=== PATIENT | male | born 1990 | race Caucasian/White ===

== ENCOUNTER 2021-01-24 15:20 | Emergency (ER) | payer OTHER ==
[~2021-01-24] VITALS: Ht 182.9 cm; Wt 115.7 kg
[~2021-01-24 15:20] MED LIST: Librium25 MG PO
[2021-01-24 16:14] LABS: BASOPHILS ABSOLUTE AUTO 0.07 K/mm3 (0.00-0.23); BASOPHILS PERCENT AUTO 1 % (0-2); EOSINOPHILS ABSOLUTE AUTO 0.06 K/mm3 (0.00-0.68); EOSINOPHILS PERCENT AUTO 1 % (0-6); Hematocrit 47.4 % (37.0-53.0); Hemoglobin 16.8 g/dL (13.5-17.5); IMMATURE GRAN ABSOLUTE AUTO 0.05 K/mm3 (0.00-0.10); IMMATURE GRAN PERCENT AUTO 0 % (0-1); LYMPHOCYTES ABSOLUTE AUTO 1.46 K/mm3 (0.84-5.20); LYMPHOCYTES PERCENT AUTO 12 % (21-46); MONOCYTES ABSOLUTE AUTO 0.92 K/mm3 (0.16-1.47); MONOCYTES PERCENT AUTO 7 % (4-13); Mean Corpuscular HGB 32.7 pg (26.0-34.0); Mean Corpuscular HGB Conc 35.4 g/dL (31.5-36.5); Mean Corpuscular Volume 92 fL (80-100); Mean Platelet Volume 10.7 fL (9.1-12.4); NEUTROPHILS ABSOLUTE AUTO 9.94 K/mm3 (1.96-9.15); NEUTROPHILS PERCENT AUTO 79 % (41-73); Platelet Count 290 K/mm3 (150-400); RDW Coefficient Variation 12.4 % (11.7-14.2); RDW Standard Deviation 42.4 fL (35.1-46.3); Red Blood Cell Count 5.14 M/mm3 (4.30-5.90)
[2021-01-24 16:29] LABS: Alanine Aminotransfer (ALT/SGP 64 U/L (12-78); Albumin, Blood 4.2 g/dL (3.4-5.0); Albumin/Globulin Ratio 1.2 (0.8-1.8); Alk Phos 96 U/L (50-136); Anion Gap 13 mmol/L (6-16); Aspartate Aminotrans (AST/SGOT 93 U/L (12-37); Bilirubin, Total 1.2 mg/dL (0.1-1.0); Blood Urea Nitrogen 8 mg/dL (8-24); Bun/Creatinine Ratio 6.3 (12.0-20.0); CO2, Blood 22 mmol/L (21-32); Calcium, Blood 9.5 mg/dL (8.5-10.1); Chloride, Blood 104 mmol/L (98-108); Creatinine, Blood 1.27 mg/dL (0.60-1.20); Ethanol (Alcohol), Blood, Med 45 mg/dL; Globulin, Blood 3.6 g/dL (2.2-4.0); Glomerular Filtration Rate >60 (60-); Glucose, Blood 98 mg/dL (70-99); Magnesium, Blood 1.6 mg/dL (1.6-2.4); Sodium, Blood 139 mmol/L (136-145); Total Protein, Blood 7.8 g/dL (6.4-8.2)
== END 2021-01-24 17:46 | disposition home or self-care (01) ==
LOC: ER 15:20
PROVIDERS: Emergency Medicine
DX: R10.9 Unspecified abdominal pain (principal); F10.20 Alcohol dependence, uncomplicated
CPT/HCPCS: 80053; 83690; 83735; 84145; 85025; 96374; 99285-25; A9270; G0480

== ENCOUNTER 2022-12-01 09:08 | Inpatient (IN) | payer OTHER ==
[~2022-12-01] VITALS: Ht 180.3 cm; Wt 108.9 kg
[2022-12-01 09:36] LABS: BASOPHILS ABSOLUTE AUTO 0.05 K/mm3 (0.00-0.23); BASOPHILS PERCENT AUTO 1 % (0-2); EOSINOPHILS PERCENT AUTO 3 % (0-6); Hematocrit 46.4 % (37.0-53.0); Hemoglobin 16.4 g/dL (13.5-17.5); IMMATURE GRAN ABSOLUTE AUTO 0.01 K/mm3 (0.00-0.10); IMMATURE GRAN PERCENT AUTO 0 % (0-1); LYMPHOCYTES ABSOLUTE AUTO 1.53 K/mm3 (0.84-5.20); LYMPHOCYTES PERCENT AUTO 26 % (21-46); MONOCYTES ABSOLUTE AUTO 0.54 K/mm3 (0.16-1.47); MONOCYTES PERCENT AUTO 9 % (4-13); Mean Corpuscular HGB 32.9 pg (26.0-34.0); Mean Corpuscular HGB Conc 35.3 g/dL (31.5-36.5); Mean Corpuscular Volume 93 fL (80-100); Mean Platelet Volume 10.7 fL (9.1-12.4); NEUTROPHILS ABSOLUTE AUTO 3.57 K/mm3 (1.96-9.15); NEUTROPHILS PERCENT AUTO 61 % (41-73); Platelet Count 244 K/mm3 (150-400); RDW Coefficient Variation 12.3 % (11.7-14.2); RDW Standard Deviation 42.8 fL (35.1-46.3); Red Blood Cell Count 4.98 M/mm3 (4.30-5.90)
[2022-12-01 09:58] LABS: Alanine Aminotransfer (ALT/SGP 31 U/L (12-78); Albumin, Blood 4.7 g/dL (3.4-5.0); Albumin/Globulin Ratio 1.3 (0.8-1.8); Alk Phos 75 U/L (50-136); Anion Gap 7 mmol/L (6-16); Aspartate Aminotrans (AST/SGOT 25 U/L (12-37); Bilirubin, Total 1.1 mg/dL (0.1-1.0); Blood Urea Nitrogen 9 mg/dL (8-24); Bun/Creatinine Ratio 8.2 (12.0-20.0); CO2, Blood 26 mmol/L (21-32); Calcium, Blood 9.6 mg/dL (8.5-10.1); Chloride, Blood 105 mmol/L (98-108); Ethanol (Alcohol), Blood, Med <3 mg/dL; Globulin, Blood 3.6 g/dL (2.2-4.0); Glomerular Filtration Rate 91 (60-); Glucose, Blood 93 mg/dL (70-99); Magnesium, Blood 1.9 mg/dL (1.6-2.4); Potassium, Blood 3.8 mmol/L (3.5-5.5); Sodium, Blood 138 mmol/L (136-145); Total Protein, Blood 8.3 g/dL (6.4-8.2)
--- NOTE | 2022-12-01 18:22 | NUR ---
ARRIVAL TO PCU/SHIFT SUMMARY Patient arrived to PCU from ED via gurney and transfered to PCU bed indepdently walking. Patient is alert and oriented x4. CIWA 14-19 during this RN shift. Vital signs stable. SPo2>90% on room air. Tele sinus 90s. Patient reports no chest pain/pressure. patient reports no shortness of breath. see shift assessment and alcohol withdrawal assessment for further detials. Patient is able to make his needs known and uses call light appropriately. Plan of care is up to date. call light within reach and bed in lowest position.
--- NOTE | 2022-12-01 23:39 | NUR ---
PT TRANSER ASSUMED CARE OF PT AT 1900. PT IS A/OX4 BUT FORGETFUL. PT CIWAH WAS 36 ON ASSESSMENT AND PT FELT GENERAL MALAISE. PT REPORTED HALLUCINATING AND SEEING HIS CHILDREN IN THE ROOM. PT WAS BEING MEDICATED EVERY HOUR WITH LITTLE RESULTS TO [facility]. DISCUSSED CARE WITH CHARGE NURSE AND HOSPITALIST NOTIFIED AND PT TRANSFERED TO ICU. REPORT GIVEN IN ROOM TO [place] [facility]. PT TOLERATED MOVE WELL AND CALLED IN ROOM.
--- NOTE | 2022-12-02 00:22 | NUR ---
PT ARRIVES TO ROOM ICU 12 FROM PCU. PT'S CIWA INCREASING TO POINT WHERE PRECEDEX IS IN NEED. PT ABLE TO PIVOT TRANSFER TO BED FROM PCU BED. PT ALERT AND HAS SOME DELAY IN REPLIES. SOME GARBLED THOUGHTS WITH CONVERSATION. PT TO ROOM AT 2310. HAVE BEGUN PRECEDEX AT 0.3 MCG'S/KG/HOUR. SUBSEQUENTLY INCREASED TO 0.4 MCG'S/KG/HOUR. WILL REVIEW CHART AND PLAN OF CARE FOR THIS PT.
--- NOTE | 2022-12-02 03:08 | NUR ---
PT CONTINUES ON PRECEDEX DRIP AT 0.4 MCG'S/KG/HOUR. HAVE MEDICATED PT WITH 2 MG ATIVAN FOR INCREASING AGITATION AND ANXIOUSNESS. PT CURRENTLY SLEEPING. WILL CONTINUE TO MONITOR.
[2022-12-02 03:57] LABS: BASOPHILS ABSOLUTE AUTO 0.03 K/mm3 (0.00-0.23); BASOPHILS PERCENT AUTO 1 % (0-2); EOSINOPHILS ABSOLUTE AUTO 0.19 K/mm3 (0.00-0.68); EOSINOPHILS PERCENT AUTO 5 % (0-6); Hematocrit 38.8 % (37.0-53.0); Hemoglobin 13.3 g/dL (13.5-17.5); IMMATURE GRAN ABSOLUTE AUTO 0.01 K/mm3 (0.00-0.10); IMMATURE GRAN PERCENT AUTO 0 % (0-1); LYMPHOCYTES ABSOLUTE AUTO 1.45 K/mm3 (0.84-5.20); LYMPHOCYTES PERCENT AUTO 36 % (21-46); MONOCYTES ABSOLUTE AUTO 0.38 K/mm3 (0.16-1.47); MONOCYTES PERCENT AUTO 10 % (4-13); Mean Corpuscular HGB 32.6 pg (26.0-34.0); Mean Corpuscular HGB Conc 34.3 g/dL (31.5-36.5); Mean Corpuscular Volume 95 fL (80-100); Mean Platelet Volume 10.5 fL (9.1-12.4); NEUTROPHILS ABSOLUTE AUTO 1.96 K/mm3 (1.96-9.15); NEUTROPHILS PERCENT AUTO 49 % (41-73); Platelet Count 183 K/mm3 (150-400); RDW Coefficient Variation 12.2 % (11.7-14.2); RDW Standard Deviation 43.1 fL (35.1-46.3); Red Blood Cell Count 4.08 M/mm3 (4.30-5.90); White Blood Cell Count 4.02 K/mm3 (4.00-11.30)
[2022-12-02 04:52] LABS: Albumin, Blood 3.3 g/dL (3.4-5.0); Albumin/Globulin Ratio 1.2 (0.8-1.8); Bilirubin, Total 1.3 mg/dL (0.1-1.0); Calcium, Blood 8.2 mg/dL (8.5-10.1); Globulin, Blood 2.8 g/dL (2.2-4.0); Potassium, Blood 3.6 mmol/L (3.5-5.5)
[2022-12-02 05:00] LABS: Total Protein, Blood 6.1 g/dL (6.4-8.2)
--- NOTE | 2022-12-02 09:40 | NUR ---
ASSUMED CARE BEDSIDE REPORT FROM JACQUELINE LONG AT 0700. PT c SNORING RESP. TITRATED PRECEDEX OFF. PT WOKE AT 0915. A&OX 4. FOLLOWING DIRECTIONS. COOPERATIVE c CARE. STATES "I FEEL LIKE A TRUCK HIT ME." CIWA 3, C/O MILD NAUSEA. DENIES NEEDS. DR AMAYA ROUNDED. PLAN TO CHANGE STATUS IF PT REMAINS STABLE. PIV X 2. IVF COMPLETE. SR, RATE 60'S. BP STABLE. WILL CONTINUE TO MONITOR.
--- NOTE | 2022-12-02 17:22 | NUR ---
SHIFT SUMMARY/BEHAVIOR/MAD CONSULT PT REMAINED PLEASANT AND COOPERATIVE c CARE UNTIL p LUNCH. PT HAD SUDDEN ONSET OF LUQ PAIN, STATED PAIN WAS 10/10, RESTLESS AND AGITATED IN BED. OBTAINED ORDERS FOR MORPHINE, PT STATES THAT DILAUDID IS THE ONLY PAIN MED THAT WORKS FOR HIM, OBTAINED ORDERS FOR DILAUDID. ADMINSTERED. PT NO LONGER AGITATED OR RESTLESS, REQUESTING ADDITIONAL MEDS, STATES PAIN 7/10, REQUESTING TO SEE MD. DR AMAYA CALLED TO BEDSIDE. ORDERS FOR DILAUDID, CARAFATE AND PROTONIX OBTAINED AND ADMINISTERED, CT ORDERED, COMPLETED. PT CALLED TO REQUESTING TO KNOW PLAN. EDUCATED PT ON ETOH WITHDRAWAL, CIWA, MEDICATION ORDERS, AND WAITING FOR CT RESULTS. PT BECAME AGITATED, SPEAKING OVER MYSELF, ANSWERING OWN QUESTIONS. ATTEMPTED TO REDIRECT PT UNSUCCESSFULLY. PT CONTINUED TO USE CALL SYSTEM REQUESTING ATIVAN, CIWA SCORES 6. MEDICATED c LIBRIUM PO PER ORDER SET. PT REQUESTING ATIVAN, EDUCATED PT THAT PER CIWA, LIBRIUM IS ORDERED. PT STATES "IM NOT TAKING ANYMORE DAMN LIBRIUM." CONTINUES TO BE VERBALLY AGRESSIVE c MYSELF AND OTHER STAFF. SINGLE PASS SOIL STABILIZER OPERATOR NOTIFIED AND PLACED PT ON BEHAVIOR PLAN.
--- NOTE | 2022-12-02 18:25 | NUR ---
PROVIDER UPDATE: Dr Jones called and informed that pt states "I am discharging now". Provider states that pt will need to leave AMA. Second RN preparing paperwork now.
--- NOTE | 2022-12-02 18:43 | NUR ---
Patient called, stating he was in withdrawal and he needed medication. Discussed with patient that he was recently medicated with librium. Patient stated that it's not working. Discussed that it's an oral medication and he recenetly received it so it may take some time for this medication to work. Pt stating he would like to see his doctor. Notified Dr Jones of patient's request. Provider stated he was no longer on campus. Updated provided to patient by this RN with supercharger mechanic Shira at bedside. Pt was unhappy with this answer but ultimately agreed to stay and allow staff to treat him. Less than 2 minutes later, pt pressed call light and stated that he was leaving. Discussed with patient that he would be leaving against medical advice and reminded him that he had just agreed to our supercharger mechanic that he would stay and be cooperative with care. He stated that he is leaving and wants to sign the AMA paperwork. Patient also stated that there is a caller on his cell phone who is recording our conversation, this was not consented to by staff. Discussed with patient that there is risk for a fall since he was recently medicated. Pt adamant on leaving and pt was repeatedly reminded that he is welcome to stay and continue treatment. Pt continued to want to leave. Provided with paperwork and Paulie from security called to escort patient to entrance. Pt spoke with his mom on the phone and she will be picking him up. Pt strong and steady on feet while ambulating out of unit.
== END 2022-12-02 18:35 | disposition left against medical advice (07) | DRG 894 ==
LOC: ER 09:08 → PCU 12:55 → ICUW 12:55 → PCU 15:28 → ICUE 23:12 → ICUW 23:23
PROVIDERS: Family Medicine; Student in an Organized Health Care Education/Training Program; ADMIT Internal Medicine
PROC: HZ2ZZZZ Detoxification Services for Substance Abuse Treatment (ICD-10-PCS; principal; 2022-12-01)
DX: F10.239 Alcohol dependence with withdrawal, unspecified (principal); R10.13 Epigastric pain; Y90.0 Blood alcohol level of less than 20 mg/100 ml; Z90.49 Acquired absence of other specified parts of digestive tract; Z28.21 Immunization not carried out because of patient refusal
CPT/HCPCS: 36415; 74176; 80053; 83690; 83735; 85025; 93005; 93010; 96374; 96375; 96376; 99285-25; A9270; C9113; G0480; J1170; J1650; J1885; J2060; J2405; J2765; J7030; J7050

== ENCOUNTER 2022-12-04 06:13 | Inpatient (IN) | payer OTHER ==
[~2022-12-04] VITALS: Ht 180.3 cm; Wt 99.9 kg
[2022-12-04 06:51] LABS: BASOPHILS ABSOLUTE AUTO 0.03 K/mm3 (0.00-0.23); BASOPHILS PERCENT AUTO 1 % (0-2); EOSINOPHILS ABSOLUTE AUTO 0.13 K/mm3 (0.00-0.68); EOSINOPHILS PERCENT AUTO 3 % (0-6); Hematocrit 42.8 % (37.0-53.0); Hemoglobin 14.8 g/dL (13.5-17.5); IMMATURE GRAN ABSOLUTE AUTO 0.01 K/mm3 (0.00-0.10); IMMATURE GRAN PERCENT AUTO 0 % (0-1); LYMPHOCYTES ABSOLUTE AUTO 0.87 K/mm3 (0.84-5.20); LYMPHOCYTES PERCENT AUTO 17 % (21-46); MONOCYTES ABSOLUTE AUTO 0.76 K/mm3 (0.16-1.47); MONOCYTES PERCENT AUTO 15 % (4-13); Mean Corpuscular HGB Conc 34.6 g/dL (31.5-36.5); Mean Corpuscular Volume 95 fL (80-100); Mean Platelet Volume 10.5 fL (9.1-12.4); NEUTROPHILS ABSOLUTE AUTO 3.39 K/mm3 (1.96-9.15); NEUTROPHILS PERCENT AUTO 65 % (41-73); Platelet Count 203 K/mm3 (150-400); RDW Coefficient Variation 12.4 % (11.7-14.2); RDW Standard Deviation 43.7 fL (35.1-46.3); Red Blood Cell Count 4.49 M/mm3 (4.30-5.90); White Blood Cell Count 5.19 K/mm3 (4.00-11.30)
[2022-12-04 07:23] LABS: Albumin, Blood 4.2 g/dL (3.4-5.0); Albumin/Globulin Ratio 1.2 (0.8-1.8); Bilirubin, Total 0.7 mg/dL (0.1-1.0); Calcium, Blood 9.2 mg/dL (8.5-10.1); Creatinine, Blood 1.19 mg/dL (0.60-1.20); Globulin, Blood 3.6 g/dL (2.2-4.0); Total Protein, Blood 7.8 g/dL (6.4-8.2)
[2022-12-04 09:04] LABS: Ethanol (Alcohol), Blood, Med <3 mg/dL
--- NOTE | 2022-12-04 09:30 | NUR ---
KEVIN IS ADMITTED FROM THE EMERGENCY DEPT, FULLY CLOTHED. PLACED ON THE MONITOR ADMISSION ASSESSMENT DONE. PT STATES THAT HE TRIED TO SLIT HIS WRIST LAST NIGHT, LEFT WRIST ASSESSED, OINTMENT APPLIED NO SUTURES NEEDED. LEFT FOREARM IV SITE INFILTRATING WITH FLUSH, SITE DISCONTINUED AND NEW SITE STARTED. PT STATES THAT HIS HEAD IS 10/10, HIS STOMACH IS INCREDIBLY PAINFUL AND THAT HE WAS VOMITING ALL NIGHT. PT IS LAYING IN BED, BREATHING EASILY WITH NORMAL RESPIRATIONS, ABLE TO MAKE COMPLETE SENTENCES. IS ORIENTED AND ABLE TO COMMUNI CHERELLE VIA PHONE/TEXTING TO HIS FRIENDS AND FAMILY. IN TO SEE PT, MULUGETA VILLALPANDO ANSWERED WITHOUT ANY DIFFICULTY. PT ASKING FOR MEDICATIONS. MEDICATED PER NOV.
--- NOTE | 2022-12-04 11:30 | NUR ---
KEVIN'S MOM CALLS TO ASK WHAT WE ARE DOING FOR HER SON. SHE STATES THAT HE PHONED HER AND SAID HE WASN'T FEELING WELL. DISCUSSED WITH PT, HE SAID, "I TRIED TO TELL HER NOT TO CALL, I AM DOING OKAY." PT STARTING TO BE SLEEPY, PRECEDEX CONTINUES AT 0.4MCG/KG. HE HAS BEEN MEDICATED WITH ATIVAN AND LIBRIUM WELL TYLENOL BY REQUEST FOR HIS HEADACHE.
--- NOTE | 2022-12-04 12:27 | NUR ---
PT IS QUIETLY SLEEPING WITH A SOFT SNORE. BP STILL ELEVATED. PRECEDEX REMAINS AT 0.4MCG/KG.
--- NOTE | 2022-12-04 13:04 | NUR ---
KEVIN HAS BEEN SLEEPING FOR LAST 30-45 MINUTES, SOFT SNORE HEARD. APPEARS COMFORTABLE IN BED. CALL LIGHT IN REACH.
--- NOTE | 2022-12-04 14:59 | NUR ---
KEVIN AWAKENS AT 1400 ASKING FOR RHIANNON MIST, COMMENTING ON THE GOOD SLEEP HE WAS ABLE TO GET. PRECEDEX CONTINUES AT 0.4MCG. JAVA WEB ENGINEER IN TO SPEAK WITH HIM. RETURNS TO RESTING QUIETLY WITH SLIGHT SNORING HEARD.
--- NOTE | 2022-12-04 15:20 | NUR ---
Upon receiving a referral for spiritual care, I visited the patient. The patient tells me about his struggles with alcohol, the events in life that led to his daily drinking habit that is destroying his life and the lives of those around him. He is tearful as he recalls the events in his life and the hurt he has caused to the ones that he loves (namely his girlfriend and three kids ages 14, 9 and 8). He shares about his spiritual distress and his desire to come back to a connection with God but he feels like he can't have that again. We talk about ava, forgiveness, and love. We talk about steps to move towards a spiritual care paln as well as a freedom from addiction plan. I hear confession, listen empathically, encourage self-care and provide spiritual guidance and prayer. Patient responded well and displayed evidence of catharsis and inner peace. I will cotninue to remain available to patient and family.
--- NOTE | 2022-12-04 16:26 | NUR ---
KEVIN REMAINS QUIETLY SNORING IN HIS ROOM. VITALS STABLE.
--- NOTE | 2022-12-04 17:59 | NUR ---
KEVIN CONTINUES ON PRECEDEX @ 0.4 MCG/KG, BEEN SLEEPING MOST OF THE AFTERNOON. AWAKENS TO USE THE BATHROOM, ASK FOR A DRINK, TALK TO THE RELIABILITY ENGINEER. HAS BEEN PLEASANT AND USING HIS MANNERS. MOTHER CAME IN BRIEFLY, SAW THAT HE WAS ASLEEP AND DID NOT STAY. CIWA'S HAVE BEEN 0-8 WITH THE SLEEPING THIS AFTERNOON. ONLY ONE DOSE OF ATIVAN AND ONE DOSE OF LIBRIUM THIS DAY.
[2022-12-05 03:34] LABS: Albumin, Blood 3.3 g/dL (3.4-5.0); Bilirubin, Direct 0.2 mg/dL (0.0-0.3); Bilirubin, Indirect 0.6 mg/dL (0.1-0.7); Bilirubin, Total 0.8 mg/dL (0.1-1.0); Bun/Creatinine Ratio 5.6 (12.0-20.0); Calcium, Blood 8.6 mg/dL (8.5-10.1); Creatinine, Blood 1.07 mg/dL (0.60-1.20); Globulin, Blood 3.3 g/dL (2.2-4.0); Magnesium, Blood 1.9 mg/dL (1.6-2.4); Phosphorus, Blood 3.5 mg/dL (2.5-4.9); Potassium, Blood 3.7 mmol/L (3.5-5.5); Total Protein, Blood 6.6 g/dL (6.4-8.2)
--- NOTE | 2022-12-05 05:55 | NUR ---
SHIFT SUMMERY PT IS ALERT AND ORIENTED X4, ON PRECEDEX DRIP W/PRN ATIVAN AND LIBRIUM NEEDED FOR ETOH W/DRAWAL. HE IS AMBULATORY TO THE THE TOILET. HE IS ON ROOM AIR AND ALL VS HAVE BEEN STABLE OVERNIGHT. HE IS AFEBRILE AT THIS TIME. NO ACUTE CHANGES OVERNIGHT.
--- NOTE | 2022-12-05 09:04 | NUR ---
AM NOTE... ASSUMED CARE OF PT AT 0700. PT IS A&Ox4. HE IS HERE FOR ETOH W/D. PT C/O OF NAUSEA BUT IS ASKING FOR "REAL FOOD." HE IS CURRENTLY ON A CLEAR LIQUID DIET. PT'S PRECEDEX GTT IS AT 0.4MCG/KG/HR. HE IS IN SR/SB 58-65. BP STABLE. HE IS IND WITH ALL ADLs AT THIS TIME. HE IS ON RA WITH O2 SATS>95%. WILL CONTIUE TO MONITOR.
--- NOTE | 2022-12-05 09:43 | NUR ---
PT UPDATE.... THE PT HAS BEEN PUTTING HIS CALL LIGHT ON EVERY FEW MINUTES TO ASK FOR IV ATIVAN. THIS RN WENT INTO THE ROOM AND ASSESSED THE PT. PT TOLD THIS RN "I JUST DON'T FEEL GOOD, I'M UNCOMFORTABLE AND I WANT ATIVAN TO MAKE ME FEEL BETTER" THIS RN INFORMED THE PT THAT HE WOULD BE UNCOMFORTABLE DURING THIS PROCESS WHEN HE HEAR THIS HE STATED "WELL THE LAST TIME I FELT THIS WAY I HURT MYSELF." THIS RN ASKED THE PT IF HAD THOUGHTS OF HARMING HIMSELF OR A PLAN AND HE SAID "NO, BUT LIKE I SAID I DON'T LIKE TO FEEL THIS WAY." THIS RN ASKED AGAIN IF THE PT WAS PLANNING TO HARM HIMSELF IF HE CONTINUED TO "FEEL THIS WAY" AND HE SAID "NO." WILL CONTINUE TO MONITOR.
--- NOTE | 2022-12-05 12:59 | NUR ---
Patient is tearful today about the not being able to go directly from the hospital to a rehab facility. He is desperate for help! We talk about his emotional struggles and his low capacity to handle life (mainly due to anger, depression and anxiety). We discuss possible strategies for anger management, dealing with emotional lows and highs and connecting to the heart of issues. I make some suggestions of possible support in the gap between d/c and an in-patient recovery program. Patient appears open to taking aggressive steps and is determined not to waste the pain of this hospitalization. I provide therapeutic listening, gentle mitochondrial disorders counselor and prayer. Patient responded well and showed signs of an greater resolve and reduced stress about the days to come.
--- NOTE | 2022-12-05 17:02 | NUR ---
SHIFT SUMMARY.... NO ACUTE NEGATIVE CHANGES NOTED THIS SHIFT. THE PRECEDEX GTT HAS BEEN TITRATED OFF FOR SEVERAL HOURS. PT'S LAST CWIA WAS 8. PT'S VS HAVE BEEN STABLE T/O THIS SHIFT. PT HAS BEEN UP TO A CHAIR AND TO THE TOILET 2 TIME THIS SHIFT TO HAVE BMs. PT'S FAMILY WAS AT THE BEDSIDE, THE VISIT WENT WELL. WILL CONTINUE TO MONITOR UNTIL REPORT IS GIVEN TO ONCOMING RN.
--- NOTE | 2022-12-05 18:48 | NUR ---
PT REQUEST "ATIVAN", STATES HE FEELS ANXIOUS, TREMORS PRESENT. ATIVAN 1MG GIVEN PER EMAR AND PRIMARY RN
[2022-12-06 03:55] LABS: Albumin, Blood 3.4 g/dL (3.4-5.0); Anion Gap 2 mmol/L (6-16); Blood Urea Nitrogen 6 mg/dL (8-24); Bun/Creatinine Ratio 5.5 (12.0-20.0); CO2, Blood 29 mmol/L (21-32); Chloride, Blood 109 mmol/L (98-108); Glomerular Filtration Rate 91 (60-); Glucose, Blood 114 mg/dL (70-99); Phosphorus, Blood 3.9 mg/dL (2.5-4.9); Potassium, Blood 3.6 mmol/L (3.5-5.5); Sodium, Blood 140 mmol/L (136-145)
--- NOTE | 2022-12-06 05:54 | NUR ---
SHIFT SUMMARY: Pt with intermittent severe alcohol withdrawl symptoms, controlled by precedex at 0.4, librium Q6, and occasional ativan IV pushes. ETOH withdrawal symptoms include: severe tremors, sweaty, headache, occasional hallucinations, anxiety, and occasional nausea. As of 05 this AM, he is resting comfortably. Vitals stable. Good urine output, was able to walk to the bathroom and had a BM last night.
--- NOTE | 2022-12-06 09:44 | NUR ---
AM NOTE.... ASSUMED CARE OF PT AT 0700. PT IS A&Ox4 AND IND IN THE ROOM. PT IS ON 0.4MCG/KG/HR OF PRECEDEX. PT WAKES EASILY AND IS STABLE ON HIS FEET. PT'S CWIA IS CURRENTLY 5. VS STABLE. HE IS ON RA WITH O2 SATS >95% L/S CLEAR T/O. PT HAS SOME SLIGHT TREMORS THAT INCREASE TO MODERATE TREMORS WHEN STAFF ARE IN THE ROOM. THE PT IS UPSET WITH THIS RN FOR "ALLOWING ME TO KEEP SHAKING LIKE THIS." THIS RN EDUCATED THE PT ON ETOH W/D AND WHAT HE COULD EXPECT AND WHAT HIS PLAN OF CARE WAS. THE PT STATED "WELL IF I HAD KNOWN YOU PEOPLE WOULD LET ME SUFFER LIKE THIS AND NOT GIVE ME PROPER MEDICATIONS I WOULD HAVE JUST ENDED IT BEFORE I CAME IN." THIS RN ASKED THE PT IF HE WAS TALKING ABOUT SUICIDE AND HE SAID "YES! BECAUSE I DON'T FEEL GOOD AND YOU AREN'T DOING ANYTHING ABOUT IT!" THIS RN EDUCATED THE PT ON THE HOSPITAL CWIA PROTOCOL AND HOW ALL ETOH PT'S ARE MEDICATED PER THIS PROTOCOL. PT CURRENTLY DENIES ANY SUICIDAL IDEATIONS. WILL CONTINUE TO MONITOR.
--- NOTE | 2022-12-06 10:14 | NUR ---
CALL LIGHT PT PRESSED CALL LIGHT, ANSWERED FROM PHONE AT DESK. PT STS HE "NEEDS HELP". I ENTERED ROOM AND PT REQUESTED ASSISTANCE TO DIAL HIS MOTHER'S PHONE NUMBER. PT STS HE DOES NOT HAVE SERVICE ON HIS PHONE AND IT HAS TO BE DONE WITH THE HOSPITAL PHONE. PHONE NUMBER DIALED AND PHONE GIVEN TO PT. PT STS TO MOTHER "IF I HAVE A SEIZURE THEN YOU BETTER GLORIA THIS FUCKING PLACE".
--- NOTE | 2022-12-06 11:17 | NUR ---
PT UPDATE... T/O THIS SHIFT THE PT HAS BEEN IND WITH ALL ADLs, TAKING HIS SCDs OFF AND PUTTING THEM BACK ON. THE PT HAD PUT HIS CALL LIGHT ON AND ASKED TO SPEAK WITH HIS PROVIDER. THIS RN CALLED THE PROVIDER AND UPDATED THEM. THIS RN WENT TO PROVIDE CARE TO ANOTHER PATIENT WHEN THIS PT PUT HIS CALL LIGHT ON AGAIN. THIS RN WENT INTO THE ROOM AFTER PROVIDEING CARE TO THE OTHER PT. ONCE IN THE ROOM THE PT SAID "SEE IT'S AFTER 11 AND NO ONE HAS GIVEN ME MY LIBRIUM!" (THE PT HAD BEEN TOLD EARLIER THAT HE COULD HAVE HIS NEXT DOSE OF LIBRIUM AT 11, AT THIS TIME IT WAS 1105.) THE PT WAS MEDICATED PER EMAR AT THIS TIME, HIS CWIA WAS 6 ACCORDING TO THIS RN'S CLINICAL ASSESSMENT. DURING THIS TIME THE PT SAID "I KNOW THAT GOLD LETTERER NURSE DIDN'T GIVE ME ANY OF MY MEDICATIONS LAST NIGHT, SHE LIED AND STOLE THEM FOR HERSELF!" THIS RN ASKED THE PT TO CLARIFY WHAT HE MEANT AND HE SAID "I KNOW SHE DIDN'T GIVE ME ANY OF MY MEDS BECAUSE I WOULDN'T FEEL THIS BAD!" THIS RN EDUCATED THE PT AGAIN ON THE PROCESS OF ETOH W/D AND THAT HIS SYMPTOMS COULD GET WORSE BEFORE GETTING BETTER. THIS RN LEFT THE ROOM AND SHORTLY AFTER LEAVING THE PT PUT HIS CALL LIGHT ON AGAIN. THIS RN WENT INTO THE ROOM AND THE PT SAID "WHAT IS THE PROCESS OF GETTING DISCHARGED WITH LIBRIUM?" THIS RN TOLD HIM HE WOULD HAVE TO DISCUSS THAT WITH HIS PROVIDER. HE THEN SAID "WELL I WOULD RATHER GO HOME AND HAVE SEIZURES BECAUSE YOU PEOPLE WOULDN'T HELP ME WHEN I HAVE A SEIZURE!" THIS RN INFORMED THE PT THAT HE HAD NOT HAD A SEIZIURE AND HE SAID "YES I DID! I WAS SHAKING AND YOU DIDN'T DO ANYTHING ABOUT IT!" THE EVENT THE PT IS REFERRING TO HAPPENED APROX 1 HR PRIOR TO THIS EVENT, HE WAS LAYING IN THE BED, KICKING/THRASHING HIS LEGS AND ROLLING HIS TORSO ACROSS THE BED. THE PT WAS ALERT AND AWAKE DURING THIS TIME WITH STABLE VS. DURING THIS EVENT DISCUSSED PT'S CONDITION WITH COVERSTITCH MACHINE OPERATOR LAURIE AND NURSE CORE SHAPER SIDES LEN, DETERMINED PT WAS NOT HAVING A SEIZURE OR HAVING SEIZURE LIKE ACTIVITY BECAUSE HE WAS MAKING EYE CONTACT AND RESPONDED TO VERBAL STIMULI, NO POSTICTAL SYMPTOMS NOTED AFTER EVENT. WILL CONTINUE TO MONITOR.
--- NOTE | 2022-12-06 11:45 | NUR ---
Spiritual care visit conducted. I visit with patient and Celebrate Recovery Leader Vicente Barba. I introduce Vicente to the patient (upon pt's previous request for support with his addiction issues) so the patient has a personal connection for someone outside the hospital for support. I allow them to talk briefly and ask Vicente to provide the prayer today for the patient. Vicente and the patient agree to the prayer. Vicente hand the patient his business card and tells me that he is available for support for the patient. The patient accepts the card and states that he will utilize the support. Patient displays evidence of being encouraged by the visit. I will continue to remain available to patient and fmaily.
[2022-12-06] MEDS ORDERED: CHLO25 PO (13:44)
--- NOTE | 2022-12-06 15:44 | NUR ---
PT D/C.... PT D/C HOME AT 1440. PT DRESSED HIMSELF AND PACKED ALL OF HIS BELONGINGS. ALL IVs REMOVED WNL. DISCHARGE EDUCATION PROVIDED IN WRITTEN AND VERBAL FORMAT. CWIA WAS 0-2 AT THE TIME OF DISCARGE. PT WAS SENT WITH A HARD SCRIPT AND OTHER MEDS WERE FAXED TO A PHARMACY OF HIS CHOICE. PT REFUSED A W/C BUT WAS ESCORTED TO THE ER DOORS BY THIS RN.
== END 2022-12-06 14:40 | disposition home or self-care (01) | DRG 897 ==
LOC: ER 06:13 → ICUW 06:14
PROVIDERS: Emergency Medicine; Family Medicine; ADMIT Internal Medicine
DX: F10.231 Alcohol dependence with withdrawal delirium (principal); R56.9 Unspecified convulsions; S61.512A Laceration without foreign body of left wrist, initial encounter; R10.9 Unspecified abdominal pain; F13.139 Sedative, hypnotic or anxiolytic abuse with withdrawal, unspecified; X58.XXXA Exposure to other specified factors, initial encounter; Z90.49 Acquired absence of other specified parts of digestive tract
CPT/HCPCS: 36415; 80048; 80053; 80069; 80076; 83690; 83735; 84100; 85025; 93005; 93010; 96361; 96365; 96375; 99285-25; A9270; C9113; G0480; J1650; J2060; J2405; J3411; J7030; J7050

== ENCOUNTER 2023-03-27 21:01 | Emergency (ER) | payer OTHER ==
[~2023-03-27] VITALS: Ht 180.3 cm; Wt 110.2 kg
[~2023-03-27 21:01] MED LIST changes: +CHLO25 PO
[2023-03-27 21:12] VITALS: BP 161/107
[2023-03-28] MEDS ORDERED: AMOCLA875 PO (01:57)
[2023-03-28] MEDS ORDERED: OCUFLOX5 M9 LEFTEAR (01:57)
== END 2023-03-28 02:33 | disposition home or self-care (01) ==
LOC: ER 21:01
DX: H72.92 Unspecified perforation of tympanic membrane, left ear (principal); H66.92 Otitis media, unspecified, left ear
CPT/HCPCS: 96372; 99283-25; A9270; J1885

== ENCOUNTER 2023-04-09 02:33 | Emergency (ER) | payer OTHER ==
[~2023-04-09] VITALS: Ht 180.3 cm; Wt 110.2 kg
[~2023-04-09 02:33] MED LIST changes: +AMOCLA875 PO; +OCUFLOX5 M9 LEFTEAR; +ONDA4ODT MM
[2023-04-09 02:58] LABS: BASOPHILS ABSOLUTE AUTO 0.03 K/mm3 (0.00-0.23); BASOPHILS PERCENT AUTO 1 % (0-2); EOSINOPHILS ABSOLUTE AUTO 0.22 K/mm3 (0.00-0.68); EOSINOPHILS PERCENT AUTO 4 % (0-6); Hematocrit 40.1 % (37.0-53.0); IMMATURE GRAN ABSOLUTE AUTO 0.01 K/mm3 (0.00-0.10); IMMATURE GRAN PERCENT AUTO 0 % (0-1); LYMPHOCYTES ABSOLUTE AUTO 2.12 K/mm3 (0.84-5.20); LYMPHOCYTES PERCENT AUTO 41 % (21-46); MONOCYTES PERCENT AUTO 10 % (4-13); Mean Corpuscular HGB 32.1 pg (26.0-34.0); Mean Corpuscular HGB Conc 34.9 g/dL (31.5-36.5); Mean Corpuscular Volume 92 fL (80-100); Mean Platelet Volume 10.3 fL (9.1-12.4); NEUTROPHILS ABSOLUTE AUTO 2.24 K/mm3 (1.96-9.15); NEUTROPHILS PERCENT AUTO 44 % (41-73); Platelet Count 207 K/mm3 (150-400); RDW Coefficient Variation 12.8 % (11.7-14.2); RDW Standard Deviation 43.6 fL (35.1-46.3); Red Blood Cell Count 4.36 M/mm3 (4.30-5.90); White Blood Cell Count 5.12 K/mm3 (4.00-11.30)
[2023-04-09 03:20] LABS: Albumin, Blood 3.7 g/dL (3.4-5.0); Albumin/Globulin Ratio 1.1 (0.8-1.8); Bilirubin, Total 0.4 mg/dL (0.1-1.0); Bun/Creatinine Ratio 5.7 (12.0-20.0); Calcium, Blood 8.8 mg/dL (8.5-10.1); Creatinine, Blood 1.05 mg/dL (0.60-1.20); Globulin, Blood 3.3 g/dL (2.2-4.0)
[2023-04-09 06:17] VITALS: BP 122/86
== END 2023-04-09 06:40 | disposition home or self-care (01) ==
LOC: ER 02:33
PROVIDERS: Emergency Medicine
DX: F10.239 Alcohol dependence with withdrawal, unspecified (principal)
CPT/HCPCS: 80053; 83690; 85025; 96361; 96374; 96375; 99285-25; J2060; J2405; J2560; J7030

== ENCOUNTER 2023-04-12 06:09 | Emergency (ER) | payer OTHER ==
[~2023-04-12] VITALS: Ht 180.3 cm; Wt 112.0 kg
[2023-04-12] MEDS ORDERED: CHLO25 PO (06:50)
[2023-04-12 08:30] VITALS: BP 117/77
== END 2023-04-12 08:59 | disposition home or self-care (01) ==
LOC: ER 06:09
DX: F10.239 Alcohol dependence with withdrawal, unspecified (principal); F41.9 Anxiety disorder, unspecified; G47.00 Insomnia, unspecified; R19.7 Diarrhea, unspecified
CPT/HCPCS: 82947; 99285; A9270

== ENCOUNTER 2023-04-14 10:22 | Emergency (ER) | payer OTHER ==
[~2023-04-14] VITALS: Ht 182.9 cm; Wt 111.1 kg
[2023-04-14 10:38] VITALS: BP 139/95
[2023-04-14 11:01] LABS: BASOPHILS ABSOLUTE AUTO 0.03 K/mm3 (0.00-0.23); BASOPHILS PERCENT AUTO 1 % (0-2); EOSINOPHILS ABSOLUTE AUTO 0.17 K/mm3 (0.00-0.68); EOSINOPHILS PERCENT AUTO 3 % (0-6); Hematocrit 42.1 % (37.0-53.0); Hemoglobin 14.5 g/dL (13.5-17.5); IMMATURE GRAN ABSOLUTE AUTO 0.01 K/mm3 (0.00-0.10); IMMATURE GRAN PERCENT AUTO 0 % (0-1); LYMPHOCYTES ABSOLUTE AUTO 1.11 K/mm3 (0.84-5.20); LYMPHOCYTES PERCENT AUTO 21 % (21-46); MONOCYTES ABSOLUTE AUTO 0.43 K/mm3 (0.16-1.47); MONOCYTES PERCENT AUTO 8 % (4-13); Mean Corpuscular HGB Conc 34.4 g/dL (31.5-36.5); Mean Corpuscular Volume 93 fL (80-100); Mean Platelet Volume 11.3 fL (9.1-12.4); NEUTROPHILS ABSOLUTE AUTO 3.54 K/mm3 (1.96-9.15); NEUTROPHILS PERCENT AUTO 67 % (41-73); NRBC ABSOLUTE 0.12 K/mm3 (0.00-0.02); NRBC Auto 2.3 /100 WBC (0.0-0.2); Platelet Count 212 K/mm3 (150-400); RDW Coefficient Variation 12.9 % (11.7-14.2); RDW Standard Deviation 43.9 fL (35.1-46.3); Red Blood Cell Count 4.53 M/mm3 (4.30-5.90); White Blood Cell Count 5.29 K/mm3 (4.00-11.30)
[2023-04-14 11:22] LABS: Alanine Aminotransfer (ALT/SGP 24 U/L (12-78); Albumin, Blood 3.9 g/dL (3.4-5.0); Albumin/Globulin Ratio 1.3 (0.8-1.8); Alk Phos 55 U/L (50-136); Anion Gap 3 mmol/L (6-16); Aspartate Aminotrans (AST/SGOT 23 U/L (12-37); Bilirubin, Total 0.5 mg/dL (0.1-1.0); Blood Urea Nitrogen 6 mg/dL (8-24); Bun/Creatinine Ratio 4.8 (12.0-20.0); CO2, Blood 28 mmol/L (21-32); Calcium, Blood 9.4 mg/dL (8.5-10.1); Chloride, Blood 110 mmol/L (98-108); Creatinine, Blood 1.25 mg/dL (0.60-1.20); Ethanol (Alcohol), Blood, Med <3 mg/dL; Globulin, Blood 3.1 g/dL (2.2-4.0); Glomerular Filtration Rate 78 (60-); Glucose, Blood 91 mg/dL (70-99); Potassium, Blood 4.3 mmol/L (3.5-5.5); Sodium, Blood 141 mmol/L (136-145)
[2023-04-14] MEDS ORDERED: PHENO60 PO (12:32)
[2023-04-14] MEDS ORDERED: PROM25 PO (12:32)
[2023-04-15] MEDS ORDERED: CHLO25 PO (21:59)
== END 2023-04-14 13:09 | disposition home or self-care (01) ==
LOC: ER 10:22
PROVIDERS: Student in an Organized Health Care Education/Training Program
DX: F10.239 Alcohol dependence with withdrawal, unspecified (principal); Y90.0 Blood alcohol level of less than 20 mg/100 ml
CPT/HCPCS: 80053; 85025; 99284; A9270; G0480

== ENCOUNTER 2023-04-15 20:45 | Emergency (ER) | payer OTHER ==
[~2023-04-15] VITALS: Ht 172.7 cm; Wt 9.1 kg
[~2023-04-15 20:45] MED LIST changes: +PHENO60 PO; +PROM25 PO
[2023-04-15 21:16] VITALS: BP 140/114
[2023-04-15] MEDS ORDERED: CHLO25 PO (21:59)
== END 2023-04-15 22:08 | disposition home or self-care (01) ==
LOC: ER 20:45
DX: F10.139 Alcohol abuse with withdrawal, unspecified (principal); F41.9 Anxiety disorder, unspecified; Y90.9 Presence of alcohol in blood, level not specified; Z79.2 Long term (current) use of antibiotics; Z79.1 Long term (current) use of non-steroidal anti-inflammatories (NSAID); Z79.899 Other long term (current) drug therapy; K21.9 Gastro-esophageal reflux disease without esophagitis
CPT/HCPCS: 99284; A9270

== ENCOUNTER 2024-10-22 13:47 | Emergency (ER) | payer OTHER ==
[~2024-10-22] VITALS: Ht 182.9 cm; Wt 108.9 kg
[~2024-10-22 13:47] MED LIST changes: +CYCL10 PO; +DOCU100 PO; +FOLI1 PO; +GABA300 PO; +HYDR1TAB94 PO; +LIDO700A20 TOP; +Naltrexone HCl50 MG PO; +Vitamin B-12100 MCG PO
[2024-10-22] MEDS ORDERED: Famotidine 10 MG/ML 2ML Vial IV ONE (13:50)
[2024-10-22] MEDS ORDERED: Dexamethasone Sod Phos 10 MG/ML 1ML VIAL IV ONE (13:50)
[2024-10-22] MEDS ORDERED: DiphenhydrAMINE HCl 50 MG/ML 1ML Vial IV ONE (13:50)
[2024-10-22] MEDS ORDERED: Acetaminophen 500 MG Tab PO ONE (14:35)
[2024-10-22] MEDS ORDERED: Ketorolac Tromethamine 15mg Vial IV ONE (14:35)
[2024-10-22] MEDS ORDERED: HYDR1TAB94 PO (16:32)
[2024-10-22 16:48] VITALS: BP 151/84
== END 2024-10-22 16:48 | disposition home or self-care (01) ==
LOC: ER 13:47
DX: T88.6XXA Anaphylactic reaction due to adverse effect of correct drug or medicament properly administered, initial encounter (principal); H72.92 Unspecified perforation of tympanic membrane, left ear; T36.0X5A Adverse effect of penicillins, initial encounter; K21.9 Gastro-esophageal reflux disease without esophagitis; Z88.8 Allergy status to other drugs, medicaments and biological substances
CPT/HCPCS: 96374; 96375; 99284-25; A9270; J1100; J1200; J1885

== ENCOUNTER 2025-08-08 17:31 | Emergency (ER) | payer OTHER ==
[~2025-08-08] VITALS: Ht 180.3 cm; Wt 96.6 kg
[~2025-08-08 17:31] MED LIST changes: +AZIT250 PO; +TIZA4 PO
[2025-08-08 17:45] VITALS: BP 169/112
[2025-08-08] MEDS ORDERED: HYDROcodone 7.5-APAP 325 TAB PO ONE (19:50)
[2025-08-08] MEDS ORDERED: HYDROCODONE-AC1 EA19 PO ×2 (20:27→20:33)
[2025-08-08] MEDS ORDERED: HYDR1TAB94 PO ×2 (20:37→20:39)
== END 2025-08-08 20:44 | disposition home or self-care (01) ==
LOC: ER 17:31
DX: S92.424A Nondisplaced fracture of distal phalanx of right great toe, initial encounter for closed fracture (principal); Z88.0 Allergy status to penicillin; Z88.1 Allergy status to other antibiotic agents; Z59.89 Other problems related to housing and economic circumstances; W20.8XXA Other cause of strike by thrown, projected or falling object, initial encounter
CPT/HCPCS: 73660; 99283-25; A9270